=== PATIENT | male | born 1965 | race Caucasian/White ===

== ENCOUNTER 2017-10-15 09:41 | Day surgery (SDC) | payer OTHER ==
[2017-10-13 12:59] VITALS: BMI 30.1
[2017-10-15] MEDS ORDERED: DEXAMETHASONE SOD PHOSPHATE/PF 10 MG/ML SDV ONE (12:02)
[2017-10-15] MEDS ORDERED: MIDAZOLAM HCL 2 MG/2 ML SINGLE DOSE VIAL ONE ×2 (12:02→12:49)
[2017-10-15] MEDS ORDERED: SODIUM CHLORIDE 0.9% P/F 10 ML VIAL IJ ONE (12:03)
[2017-10-15] MEDS ORDERED: BUPIVACAINE HCL/PF 2.5 MG/ML - 30 ML VIAL IJ ONE (12:22)
[2017-10-15] MEDS ORDERED: PROPOFOL 20 ML ONE ×2 (12:49)
[2017-10-15] MEDS ORDERED: ceFAZolin SODIUM 1 GM VIAL ONE (12:50)
[2017-10-15] MEDS ORDERED: KETOROLAC TROMETHAMINE 30 MG/1 ML VIAL ONE (12:50)
[2017-10-15] MEDS ORDERED: DEXAMETHASONE SOD PHOSPHATE 4 MG/1 ML VIAL ONE (12:50)
[2017-10-15] MEDS ORDERED: LIDOCAINE HCL 2% JELLY (5 ML/TUBE) ONE (12:50)
[2017-10-15] MEDS ORDERED: ONDANSETRON 4 MG/2 ML VIAL ONE (12:50)
[2017-10-15] MEDS ORDERED: oxyCODONE HCL 5 MG TABLET PO PRN (14:38)
[2017-10-15] MEDS ORDERED: ONDANSETRON 4 MG/2 ML VIAL IVPUSH PRN (14:38)
[2017-10-15] MEDS ORDERED: LACTATED RINGERS SOLUTION 1,000 ML IV SCH (14:45)
[2017-10-15 16:58] VITALS: TEMP 98
[2017-10-15 17:11] VITALS: BP 132/74; PULSE 65
--- NOTE | 2017-10-17 21:12 | OP ---
DATE OF OPERATION: 10/15/2017 LOCATION: [facility]. SURGEON: Juan Kahn MD SOCIOLOGY ADJUNCT INSTRUCTOR: RUPERT Stephens PREOPERATIVE DIAGNOSES: 1. Right patellar tendon rupture. 2. Right knee medial meniscal tear. 3. Right knee cartilage injury. POSTOPERATIVE DIAGNOSES: 1. Right patellar tendon rupture. 2. Right knee medial meniscal tear. 3. Right knee cartilage injury. PROCEDURE: 1. Right knee patellar tendon repair. 2. Right knee arthroscopy with partial meniscectomy, medial meniscus. 3. Right knee arthroscopy with chondroplasty and abrasion-plasty. 4. Right knee arthroscopy with synovectomy. FINDINGS: 1. Medial meniscus posterior horn extending into body tear. 2. Lateral meniscus, no evidence of tearing. 3. Extensive synovitis, most pronounced anteriorly and medially but also notch and posterior portion. 4. ACL and PCL intact. 5. No evidence of cartilage injury, lateral joint line. 6. Inferior pole patella and femoral trochlea grade 2 to 4 changes. PROCEDURE DESCRIPTION: Informed consent was obtained. The patient was taken to the operating room where the right lower extremity was prepped and draped in a sterile fashion. A tourniquet was placed on the right upper thigh but not inflated. Using standard arthroscopic technique, a lateral incision and portal were made which allowed for introduction of the camera into the suprapatellar bursa. This was then taken to the medial joint line where under direct visualization, a medial incision and portal were made. Excessive synovium noted in the medial, lateral, patellofemoral and notch area was removed by the up-biting shaver and Bovie cautery. This was found to bring inflammatory tissue into the joint surface, a source of joint pain and dysfunction. Probing of the medial and lateral meniscus found tears described in the findings. These were removed with an up-biting shaver and taken back to a stable rim. Grade 2-3 degenerative changes were treated with chondroplasty, removing all flaking surfaces with low setting Bovie used along the periphery. Grade 4 changes were treated with abrasion-plasty. All areas of the knee were once again re-examined. The knee was then drained. A single suture was placed on all portals. Sterile dressing was placed. The patient was transferred to the recovery room. ADDENDUM: After arthroscopy, an incision was made starting from the mid portion of the patella extending approximately 8 cm. Extensive soft tissue was debrided, and the tendon portion that was found to be necrotic was removed. Two number 5 FiberWire sutures were placed into the patellar tendon using a Krackow interlocking stitch. Three drill holes were then placed through to the inferior pole patella through the central portion of the patella to allow for securing of the patellar tendon sutures over a bone bridge. Please note the undersurface of the patella was treated with rongeur and multiple small holes were placed into the inferior pole to create a bleeding surface. The patella was reduced to the patellar tendon by tying it through the 3 bone bridges and secured the soft tissue to the bony bleeding bone. Wound was irrigated with copious amounts of irrigation. Layered closure of 0 Vicryl, 2-0 Vicryl, and ector was performed. Sterile dressing and splint was placed and patient was transferred to the recovery room without complication. JUAN KAHN M.D. [id number]
--- NOTE | 2017-10-20 15:20 | PATH ---
Surgical Pathology Report Patient Name: SAMEERA LAGOS Med. Rec. #: [id number] /Age/Gender: 1965 (Age: 52) / M Account: [id number] Location: [facility] AMBULATORY Taken: 10/15/2017 Received: 10/18/2017 Reported: 10/20/2017 Physicians: Juan Salter M.D. Specimen(s) Received RIGHT KNEE SHAVINGS Clinical History Right knee ruptured patella tendon internal derangement Final Diagnosis KNEE SHAVINGS, RIGHT, ARTHROSCOPY AND PATELLA TENDON REPAIR: FRAGMENTS OF FIBROCARTILAGE, FIBROADIPOSE TISSUE, AND SYNOVIUM. Electronically Signed Demetra Garcia M.D. Gross Description Received in formalin labeled "right knee shavings," is a 3.3 x 3.0 x 0.4 cm aggregate of kirkpatrick-yellow soft tissue fragments admixed with blood clot. A access services representative portion is submitted in one cassette. 10/18/201710/18/2017
== END 2017-10-15 16:45 | disposition home or self-care (01) ==
LOC: FASU 09:41
PROVIDERS: ATTEND Orthopaedic Surgery
PROC: 0LUQ4JZ Supplement Right Knee Tendon with Synthetic Substitute, Percutaneous Endoscopic Approach (ICD-10-PCS; 2017-10-15)
PROC: 0SBC4ZZ Excision of Right Knee Joint, Percutaneous Endoscopic Approach (ICD-10-PCS; principal; 2017-10-15 13:21)
DX: M66.269 Spontaneous rupture of extensor tendons, unspecified lower leg (principal); M23.221 Derangement of posterior horn of medial meniscus due to old tear or injury, right knee
CPT/HCPCS: 88304-TC

== ENCOUNTER 2017-10-16 05:30 | Emergency (ER) | payer OTHER ==
[2017-10-16 05:38] VITALS: TEMP 98.6; BMI 29.4
--- NOTE | 2017-10-16 05:57 | PDOC ---
History of Present Illness - General Chief Complaint: Injury Stated Complaint: RT KNEE PAIN Time Seen by Provider: 10/16/17 05:32 History Source: Patient Exam Limitations: No Limitations - History of Present Illness Initial Comments: 10/16/17 05:47 52-year-old male with no medical history presents to the emergency department complaining of possible right knee injury. Approximately one week ago:2016 patient states he slipped and fell down a flight of stairs causing a right patellar fracture. Patient was seen at [facility] and was discharged to follow with an orthopedic surgeon. 3 days later:10/11/2017, patient saw Dr. Douglass/orthopod in his office. Yesterday,10/15/2017, patient had a right patella rupture repair at [facility]. Prior to discharge, he was informed that a right knee nerve block was performed on him. Patient states a medical taxi brought him home and wheeled him into his house at approximately 1630 hrs. At ~1700 hrs., patient attempted to place his right leg on the ground to void when his legs gave out causing him to fall onto the right side. Patient immediately called Dr. Douglass and explained to him the situation. Patient went back to bed and at approximately 0430 hrs. this morning, patient use his crutches to return to the restroom. Again, he placed his right leg on the ground when his leg gave out causing him to fall onto his right lateral side. Patient states he is unable to feel his right lower leg since the surgery. Patient denies any head injuries, loss of consciousness, headache, dizziness, facial pains, neck pains, back pains, chest pain, shortness of breath, abdominal pains, flank pains, urinary symptoms. Patient denies pain to any other extremities except the right lower leg which he states is still numb from the nerve block. Patient states he called Dr. Douglass and spoke to the covering physician/Dr. Harvey who informed him to be seen in the emergency department. Patient states he cannot recall how much flexion was on his right knee on his initial fall because he quickly strain now his leg but when he fell the second time, he noticed his right knee was approximately 90 flexed. Timing/Duration: other (12 hrs) Severity: mild Modifying Factors: improves with: medication, rest Associated Symptoms: denies: chest pain, cough, shortness of breath Aspirin Received prior to arrival: Yes: no aspirin today Past History - Travel Traveled outside of the country in the last 30 days: No Close contact w/someone who was outside of country & ill: No - Past Medical History Allergies/Adverse Reactions: Allergies Allergy/AdvReac Type Severity Reaction Status Date / Time bee venom protein (honey bee) Allergy Severe CHEST Verified 10/16/17 05:36 TIGHTNESS Penicillins Allergy Unknown UNKNOWN Verified 10/16/17 05:36 Home Medications: Ambulatory Orders Acetaminophen [Tylenol -] 500 mg PO Q6H PRN 10/15/17 Hydrocodone/Acetaminophen [[place] 5-325 Tablet] 1 each PO Q6H PRN #28 tablet MDD 8 10/15/17 Ibuprofen 800 mg PO Q8H PRN #60 tablet 10/15/17 Anemia: No Asthma: No Cancer: No Cardiac Disorders: No CVA: No COPD: No CHF: No Dementia: No Diabetes: No (BOARDERLINE) GI Disorders: Yes (GERD) Disorders: No HTN: No Hypercholesterolemia: No Liver Disease: No Seizures: No Thyroid Disease: No - Surgical History Abdominal Surgery: No Appendectomy: No Cardiac Surgery: No Cholecystectomy: No Lung Surgery: No Neurologic Surgery: No Orthopedic Surgery: No - Suicide/Smoking/Psychosocial Hx Smoking History: Never smoked Have you smoked in the past 12 months: No If you are a former smoker, when did you quit?: 2006 Information on smoking cessation initiated: No Hx Alcohol Use: No Drug/Substance Use Hx: No Substance Use Type: None Hx Substance Use Treatment: No Review of Systems - Review of Systems Able to Perform ROS?: Yes Comments:: 10/16/17 06:43 CONSTITUTIONAL: Absent: fever, chills, diaphoresis, generalized weakness, malaise, loss of appetite HEENT: Absent: rhinorrhea, nasal congestion, throat pain, throat swelling, difficulty swallowing, mouth swelling, ear pain, eye pain, visual Changes CARDIOVASCULAR: Absent: chest pain, loss of consciousness, palpitations, irregular heart rate, peripheral edema RESPIRATORY: Absent: cough, shortness of breath, dyspnea with exertion, orthopnea, wheezing, stridor, hemoptysis GASTROINTESTINAL: Absent: abdominal pain, abdominal distension, nausea, vomiting, diarrhea, constipation, melena, hematochezia GENITOURINARY: Absent: dysuria, frequency, urgency, hesitancy, hematuria, flank pain, genital pain MUSCULOSKELETAL: Right LLE: "I can't feel my leg from the block" Absent: myalgia, arthralgia, joint swelling SKIN: Absent: rash, itching, pallor HEMATOLOGIC/IMMUNOLOGIC: Absent: easy bleeding, easy bruising, lymphadenopathy, frequent infections ENDOCRINE: Absent: unexplained weight gain, unexplained weight loss, heat intolerance, cold intolerance NEUROLOGIC: Absent: headache, focal weakness or paresthesias, dizziness, unsteady gait, seizure, mental status changes, bladder or bowel incontinence Constitutional: No: Chills, Fever, Night Sweats HEENTM: No: Recent change in vision Respiratory: No: Cough, Shortness of Breath, Wheezing Cardiac (ROS): No: Chest Pain, Lightheadedness, Chest Tightness ABD/GI: No: Constipated, Diarrhea, Nausea, Vomiting Musculoskeletal: No: Neck Pain Integumentary: No: Change in Color, Pallor Neurological: Yes: Numbness (reports numbness to RLE). No: Headache, Paresthesia, Tingling, Dizziness Hematologic/Lymphatic: No: Easy Bleeding, Easy Bruising *Physical Exam - Vital Signs Last Vital Signs Temp Pulse Resp BP Pulse Ox 98.6 F 97 H 20 148/95 95 10/16/17 05:36 10/16/17 05:36 10/16/17 05:36 10/16/17 05:36 10/16/17 05:36 - Physical Exam Comments: 10/16/17 06:43 GENERAL: Well developed, well nourished. Awake and alert. No acute distress. HEENT: Normocephalic, atraumatic. PERRLA, EOMI. No conjunctival pallor. Sclera are non- icteric. Moist mucous membranes. Oropharynx is clear. NECK: Supple. Full ROM. No JVD. Carotid pulses 2+ and symmetric, without bruits. No thyromegaly. No lymphadenopathy. CARDIOVASCULAR: Regular rate and rhythm. No murmurs, rubs, or gallops. Distal pulses are 2+ and symmetric. PULMONARY: No evidence of respiratory distress. Lungs clear to auscultation bilaterally. No wheezing, rales or rhonchi. ABDOMINAL: Soft. Non-tender. Non-distended. No rebound or guarding. No organomegaly. Normoactive bowel sounds. MUSCULOSKELETAL Excluding Right LLE: Normal range of motion at all joints. No bony deformities or tenderness. No CVA tenderness. EXTREMITIES: No cyanosis. No clubbing. No edema. No calf tenderness. SKIN: Warm and dry. Normal capillary refill. No rashes. No jaundice. Right Knee ABD dressing on patella/blood stained ~4cm x3cm/ stained but NOT soaked vertical mid patella incision clean/ blood stain +swelling Iodoform medial incision Pt unable to feel 2 point sensation to RLLE Right foot: cap refill <2sec General Appearance: Yes: Nourished, Appropriately Dressed. No: Apparent Distress HEENT: positive: K[place], Normal ENT Inspection, Pharynx Normal. negative: Pharyngeal Erythema, Tonsillar Exudate, Tonsillar Erythema, Rhinorrhea Neck: positive: Trachea midline, Supple. negative: Tender, Decreased range of motion Respiratory/Chest: positive: Lungs Clear, Normal Breath Sounds. negative: Chest Tender, Accessory Muscle Use, Crackles, Rales, Rhonchi, Wheezing Cardiovascular: positive: Regular Rhythm, S1, S2, Tachycardia Vascular Pulses: Dorsalis-Pedis (R): 2+, Doralis-Pedis (L): 2+ Gastrointestinal/Abdominal: positive: Normal Bowel Sounds, Soft. negative: Tender, Distended, Guarding Extremity: positive: Normal Capillary Refill (B/L LE), Other (sutures intact, inc bleeding through dressing on RLE. DP 2+ B/L). negative: Coldness, Cyanosis , Delayed Capillary Refill, Pedal Edema Integumentary: positive: Normal Color, Warm. negative: Cyanotic, Mottled, Pale , Cold, Clammy Neurologic: positive: supervisor nutritional yeast II-XII NML intact, Fully Oriented, Alert, Normal Mood/ Affect, Normal Response Progress Note - Progress Note Progress Note: Right knee: Posterior/medial/lateral fiberglass removed Web roll removed ABD dressing removed Incision looked intact Iodoform dressing medially intact Sterile ABD dressing replaced Web roll/new/replaced Aron wrapped right knee with the posterior/medial and lateral fiberglass splint 0621hrs: Spoke to Dr. Harvey/orthopod covering for Dr. Douglass ([phone]), agrees to have Mr. Toth is right lower leg CT without contrast. The plan is to contact Dr. Harvey for any abnormalities otherwise patient is to be discharged home to follow-up with or so during the week as soon is the nerve block has worn off. 0633hrs: Pt agreed with plan 0704hrs: Signed out to CARLOS Hurley Check CT Right LLE
--- NOTE | 2017-10-16 08:39 | PDOC ---
*Physical Exam - Vital Signs Last Vital Signs Temp Pulse Resp BP Pulse Ox 98.6 F 97 H 20 148/95 95 10/16/17 05:36 10/16/17 05:36 10/16/17 05:36 10/16/17 05:36 10/16/17 05:36 Medical Decision Making - Medical Decision Making 10/16/17 08:09 Patient was seen in sign out from RUPERT Rivas. Patient here secondary to lower extremity numbness after receiving a nerve block yesterday for repair of his tendon repair right patellar rupture repair performed by Dr. Douglass. Patient states after coming home yesterday he fell twice causing him to land on his right side. Patient still complaining of numbness upon arrival. Patient pending CT of the lower extremity. Case already discussed with will be contacted once CT has been resulted along with reexamination 10/16/17 09:02 CT of the lower extremity shows Surgical skin ector with significant soft tissue swelling anterior and soft tissue air. There is also a small joint effusion. Tiny bone fragments along the anterior surface of the patella with a linear low attenuation density and its inferior/anterior aspect that may represent postop changes in view of the clinical history. Cannot exclude a nondisplaced fracture. call placed to Dr. Harvey, orthopedist to discuss case. Reexamination. Patient has numbness to the right fifth toe, severe paresthesia to the fourth toe, moderate to the third toe , minimal paresthesia to the right second toe and no paresthesia or decreased sensation to the right first toe. 10/16/17 10:04 Case is discussed with Dr. Harvey orthopedist from [facility] and states CT findings consistent with postoperative changes and does not display a fracture. he does recommend calling anesthesiology to discuss the nerve block and possibly consult on patient in the ER. Patient otherwise may follow up with him in the office on Wednesday . 10/16/17 10:21 Case discussed with anesthesiologist Dr. Villanueva and states will consult on patient down here in the ER. 10/16/17 10:58 Patient was able to ambulate using crutches. Gait steady. Patient also seen by Dr. Villanueva, anesthesiologist who states patient may go home and follow up with orthopedist as planned. Patient requesting a dose of Naprosyn prior to discharge. *DC/Admit/Observation/Transfer Diagnosis at time of Disposition: Post-operative numbness Right knee pain Qualifiers: Chronicity: acute Qualified Code(s): M25.561 - Pain in right knee - Discharge Dispostion Disposition: HOME Condition at time of disposition: Good - Referrals - Patient Instructions Printed Discharge Instructions: How to Use Crutches Additional Instructions: At this time he had been seen by the anesthesiologist who explained postoperative process and healing. As discussed with your orthopedist please follow-up with Dr. Douglass on Wednesday and continue take medication as needed for discomfort. - Post Discharge Activity
--- NOTE | 2017-10-16 10:32 | PDOC ---
*Physical Exam - Vital Signs Last Vital Signs Temp Pulse Resp BP Pulse Ox 98.6 F 88 16 147/97 97 10/16/17 05:36 10/16/17 09:29 10/16/17 09:29 10/16/17 09:29 10/16/17 09:29 Medical Decision Making - Medical Decision Making 10/16/17 10:32 Patient with fall likely secondary to improper crutch use. Patient states that he had difficulty remaining steadies secondary to nerve block. He presented to the emergency department his orthopedist was consulted a CAT scan was ordered which demonstrated no significant pathology Findings discussed with orthopedist patient safe for outpatient follow-up on Wednesday Anesthesia will evaluate the patient in the emergency department to ensure that his nerve block is wearing off appropriately In the emergency department patient was able to ambulate comfortably with steady gait using crutches. If cleared by anesthesia patient can be discharged home has follow-up on Wednesday. Findings, the need for follow-up and strict return instructions discussed with patient. *DC/Admit/Observation/Transfer Diagnosis at time of Disposition: Post-operative numbness Right knee pain Qualifiers: Chronicity: acute Qualified Code(s): M25.561 - Pain in right knee - Discharge Dispostion Disposition: HOME Condition at time of disposition: Good - Referrals - Patient Instructions Printed Discharge Instructions: How to Use Crutches Additional Instructions: At this time he had been seen by the anesthesiologist who explained postoperative process and healing. As discussed with your orthopedist please follow-up with Dr. Douglass on Wednesday and continue take medication as needed for discomfort. - Post Discharge Activity
[2017-10-16] MEDS ORDERED: NAPROXEN 250 MG TABLET (FP) PO ONE (10:59)
[2017-10-16] MEDS ORDERED: NAPROXEN 500 MG TABLET (FP) ONE (11:03)
[2017-10-16 11:18] VITALS: BP 138/89; PULSE 70
== END 2017-10-16 11:18 | disposition home or self-care (01) ==
LOC: JER 05:30
DX: F14.10 Cocaine abuse, uncomplicated (principal); E78.00 Pure hypercholesterolemia, unspecified; Z21 Asymptomatic human immunodeficiency virus [HIV] infection status; Z89.021 Acquired absence of right finger(s)
CPT/HCPCS: 73700-TC-RT; 99282-25

== ENCOUNTER 2017-12-17 05:53 | Day surgery (SDC) | payer OTHER ==
[2017-12-16 11:37] VITALS: BMI 30.4
[2017-12-17] MEDS ORDERED: SUCCINYLCHOLINE CHLORIDE 200 MG/10 ML VIAL ONE (07:20)
[2017-12-17] MEDS ORDERED: MIDAZOLAM HCL 2 MG/2 ML SINGLE DOSE VIAL ONE (07:20)
[2017-12-17] MEDS ORDERED: ceFAZolin SODIUM 1 GM VIAL ONE ×2 (07:20→07:58)
[2017-12-17] MEDS ORDERED: PROPOFOL 20 ML ONE ×2 (07:20→07:21)
[2017-12-17] MEDS ORDERED: LIDOCAINE HCL 2% JELLY (5 ML/TUBE) ONE (07:21)
[2017-12-17] MEDS ORDERED: DEXAMETHASONE SOD PHOSPHATE 4 MG/1 ML VIAL ONE (07:21)
[2017-12-17] MEDS ORDERED: ONDANSETRON 4 MG/2 ML VIAL ONE (07:21)
[2017-12-17] MEDS ORDERED: LIDOCAINE HCL/PF 2% SDV 5ML VIAL ONE (07:21)
[2017-12-17] MEDS ORDERED: ROCURONIUM BROMIDE 50 MG/5 ML VIAL ONE (07:24)
[2017-12-17] MEDS ORDERED: BUPIVACAINE HCL/PF 2.5 MG/ML - 30 ML VIAL IJ ONE (07:30)
[2017-12-17] MEDS ORDERED: fentaNYL CITRATE 250 MCG/5 ML VIAL ONE (07:50)
[2017-12-17] MEDS ORDERED: HYDROmorphone HCL/PF 1 MG/ML VIAL (FOR PYXIS CHARGING ONLY) ONE ×2 (08:35→09:29)
[2017-12-17] MEDS ORDERED: DESFLURANE GAS 240 ML BOTTLE IH ONE (08:49)
[2017-12-17] MEDS ORDERED: GLYCOPYRROLATE 0.2 MG/1 ML VIAL ONE (08:55)
[2017-12-17] MEDS ORDERED: NEOSTIGMINE METHYLSULFATE 0.5 MG/ML - 10 ML MDV ONE (08:55)
[2017-12-17] MEDS ORDERED: BUPIVACAINE HCL/PF 0.25% (2.5MG/ML) 10 ML VIAL IJ ONE (09:17)
[2017-12-17] MEDS ORDERED: ONDANSETRON 4 MG/2 ML VIAL IVPUSH PRN (09:55)
[2017-12-17] MEDS ORDERED: LACTATED RINGERS SOLUTION 1,000 ML IV SCH (10:00)
[2017-12-17] MEDS: oxyCODONE HCL 5 MG TABLET PO PRN ×2 (10:20→10:55)
[2017-12-17] MEDS ORDERED: oxyCODONE HCL 5 MG TABLET ONE (10:53)
[2017-12-17 11:58] VITALS: TEMP 97.9
[2017-12-17 13:47] VITALS: BP 152/90; PULSE 90
--- NOTE | 2017-12-20 00:26 | OP ---
DATE OF OPERATION: 12/17/2017 SURGEON: Juan Kahn MD RECRUITER MANAGER: RUPERT Stephens PREOPERATIVE DIAGNOSIS: Right knee patellar tendon rupture. POSTOPERATIVE DIAGNOSIS: Right knee patellar tendon rupture. PROCEDURE: Right knee patellar tendon repair secondary to using graft. FINDINGS: Avulsion of previous repair tendon at the tendon insertion site into the inferior pole of the patella. PROCEDURE: Informed consent was obtained. The patient was brought to the operating room where the right lower extremity was prepped and draped in the sterile fashion. Tourniquet was placed on the upper leg and inflated to 300 mmHg. An incision was made on the area of the patient's previous incision anterior to the knee. Scar tissue was removed and the area of retear was noted along the patellar tendon insertion to the inferior pole of the patella. Excessive scar tissue was debrided and the inferior pole of the patella was debrided, creating a bleeding surface using a rongeur and multiple holes were placed with a beef needle. Old suture was removed and two number 5 Ethibonds were placed in a locking Krackow stitch, providing 4 strands of suture and 2 separate Krackow interlocking stitches. These were then secured using beef needles, drilling holes from the inferior pole of the patella to the center portion of the patella, bringing the sutures through these holes and securing them over bone tunnels. With the anterior portion of the patella exposed, a guidewire was then placed back through the patella and mattress sutures were used, using the same bone tunnels, securing the tibialis anterior allograft to the superior portion of the patella. This was then inner sewn into the patellar tendon repair in a cross/X pattern using number 2 FiberWire. Edges were then oversewn with number 2 FiberWire. Wound was irrigated with copious amounts of irrigation and closed with 0 Vicryl, 2-0 Vicryl, and ector. Sterile dressing and a silver cast were placed. The patient was transferred to the recovery room without complication. JUAN KAHN M.D. [id number]
--- NOTE | 2017-12-21 12:50 | PATH ---
Surgical Pathology Report Patient Name: SAMEERA LAGOS Med. Rec. #: [id number] /Age/Gender: 1965 (Age: 52) / M Account: [id number] Location: [facility] AMBULATORY Taken: 12/17/2017 Received: 12/17/2017 Reported: 12/21/2017 Physicians: Juan Salter M.D. Specimen(s) Received RIGHT PATELLA TENDON SCAR TISSUE Clinical History Right patellar tendon tear Final Diagnosis PATELLAR TENDON SCAR TISSUE, RIGHT, REPAIR: FIBROCOLLAGENOUS TISSUE SHOWING ACUTE AND CHRONIC INFLAMMATION, GRANULATION TISSUE FORMATION AND FOREIGN BODY GIANT CELL REACTION WITH ASSOCIATED SUTURE MATERIAL. Electronically Signed Mily Pablo M.D. Gross Description Received in formalin labeled "right patellar tendon scar tissue," is a 4.5 x 4.5 x 0.8 cm aggregate of kirkpatrick, irregular portions of soft tissue. Some of the portions displaying embedded blue suture material. There is additional blue suture material received within the same container. Wallpaper Scraper sections are submitted in one cassette. 12/17/201712/17/2017
== END 2017-12-17 13:40 | disposition home or self-care (01) ==
LOC: FASU 05:53
PROVIDERS: ATTEND Orthopaedic Surgery
PROC: 0LUQ07Z Supplement Right Knee Tendon with Autologous Tissue Substitute, Open Approach (ICD-10-PCS; principal; 2017-12-17 08:15)
DX: M66.261 Spontaneous rupture of extensor tendons, right lower leg (principal)
CPT/HCPCS: 88304-TC; 94760; 97116-GP

== ENCOUNTER 2023-03-12 23:58 | Inpatient (IN) | payer BC, OTHER ==
[2023-03-13 00:13] VITALS: BMI 30.1
[2023-03-13] MEDS ORDERED: VANCOMYCIN 1,000 MG in DEXTROSE 5%-WATER - 250 ML IVPB ONE (00:22)
[2023-03-13] MEDS ORDERED: MEROPENEM 1 GM in DEXTROSE 5%-WATER 100 ML IVPB ONE (00:22)
[2023-03-13] MEDS ORDERED: VANCOMYCIN/WATER FOR INJ (PEG) 1,000 MG/200 ML BAG IVPB ONE (00:29)
[2023-03-13] MEDS ORDERED: MEROPENEM 1 GM VIAL (RESTRICTED TO ID) IVPB ONE (00:29)
[2023-03-13 01:51] LABS: BASO % 0.4 % (0-2.0); EOS % 1.5 % (0-4.5); HEMATOCRIT 40.8 % (35.4-49); LYMPH % 17.7 % (8-40); MCH 30.5 pg (25.7-33.7); MCHC 34.3 g/dl (32.0-35.9); MEAN CELL VOLUME 88.9 fl (80-96); MEAN PLT VOLUME 7.6 fl (7.5-11.1); MONO % 8.5 % (3.8-10.2); NEUT % 71.9 % (42.8-82.8); PLATELET COUNT 224 10^3/uL (134-434); RBC 4.59 M/mm3 (4.00-5.60); RDW 13.4 % (11.9-15.9); WHITE BLOOD COUNT 15.1 K/mm3 (4.0-10.0)
[2023-03-13 02:17] LABS: POTASSIUM 3.7 mmol/L (3.5-5.1)
[2023-03-13 02:20] LABS: CALCIUM 9.1 mg/dL (8.5-10.1)
[2023-03-13 02:21] LABS: ALBUMIN 3.9 g/dl (3.4-5.0); BLOOD UREA NITROGEN 19.7 mg/dL (7-18)
[2023-03-13 02:25] LABS: BILIRUBIN,TOTAL 0.6 mg/dL (0.2-1)
[2023-03-13 02:26] LABS: TOT PROT 8.2 g/dl (6.4-8.2)
[2023-03-13] MEDS: INSULIN SLIDING SCALE (NOVOLOG) 1 VIAL SQ SCH ×4 (06:14→21:40)
[2023-03-13] MEDS: ACETAMINOPHEN 1000 MG/100 ML BAG IVPB PRN ×2 (06:55→21:40)
[2023-03-13 07:09] LABS: ERYTHROCYTE SEDIMENTATION RATE 70 mm/hr (0-20)
[2023-03-13 09:15] LABS: BASO % 0.5 % (0-2.0); EOS % 1.5 % (0-4.5); HEMATOCRIT 37.7 % (35.4-49); HEMOGLOBIN 13.3 GM/dL (11.7-16.9); LYMPH % 17.7 % (8-40); MCH 31.3 pg (25.7-33.7); MCHC 35.3 g/dl (32.0-35.9); MEAN CELL VOLUME 88.7 fl (80-96); MEAN PLT VOLUME 7.7 fl (7.5-11.1); MONO % 7.9 % (3.8-10.2); NEUT % 72.4 % (42.8-82.8); PLATELET COUNT 188 10^3/uL (134-434); RBC 4.25 M/mm3 (4.00-5.60); WHITE BLOOD COUNT 10.5 K/mm3 (4.0-10.0)
[2023-03-13 09:19] LABS: INR 1.2 (0.83-1.09); PROTHROMBIN TIME (PATIENT) 13.9 SEC (9.7-13.0)
[2023-03-13 09:22] LABS: ACTIVATED PTT 27.4 SECONDS (25.2-36.5)
[2023-03-13] MEDS: MEROPENEM 1 GM in DEXTROSE 5%-WATER 100 ML IVPB SCH ×2 (09:46→18:00)
[2023-03-13 09:47] LABS: POTASSIUM 4.1 mmol/L (3.5-5.1)
[2023-03-13 09:57] LABS: BLOOD UREA NITROGEN 20.2 mg/dL (7-18); CALCIUM 8.7 mg/dL (8.5-10.1)
[2023-03-13 10:00] LABS: CREATININE 0.9 mg/dL (0.55-1.3); PHOSPHOROUS 3.1 mg/dL (2.5-4.9)
[2023-03-13] MEDS: ENOXAPARIN NA (PORCINE) 40 MG/0.4 ML DISP.SYRIN SQ SCH (10:00)
[2023-03-13] MEDS ORDERED: IBUPROFEN 200 MG TABLET PO PRN (12:48)
[2023-03-13] MEDS ORDERED: VANCOMYCIN PREMIX 1.5 GM 1,500 MG/300 ML BAG IVPB SCH ×2 (13:00→18:30)
[2023-03-13] MEDS: BACITRACIN ZINC 15 GM TUBE TOPICAL OINTMENT TP SCH ×2 (13:29→21:38)
[2023-03-13] MEDS ORDERED: MEROPENEM 1 GM in DEXTROSE 5%-WATER 100 ML IVPB SCH (18:00)
[2023-03-13] MEDS: IBUPROFEN 200 MG TABLET PO PRN (18:34)
[2023-03-13] MEDS: CEFTRIAXONE 1 GM in DEXTROSE 5%-WATER - 50 ML IVPB SCH (18:44)
[2023-03-13] MEDS ORDERED: INSULIN (NOVOLOG) ASPART 100 UNITS/ML 10ML VIAL ONE (21:17)
[2023-03-13] MEDS: DOCUSATE SODIUM 100 MG CAPSULE (FP) PO SCH (21:40)
[2023-03-14] MEDS: VANCOMYCIN PREMIX 1.5 GM 1,500 MG/300 ML BAG IVPB SCH ×2 (01:08→12:49)
[2023-03-14] MEDS: INSULIN SLIDING SCALE (NOVOLOG) 1 VIAL SQ SCH ×4 (06:25→21:35)
[2023-03-14] MEDS ORDERED: INSULIN (NOVOLOG) ASPART 100 UNITS/ML 10ML VIAL ONE ×2 (06:46→21:18)
[2023-03-14] MEDS: IBUPROFEN 200 MG TABLET PO PRN (07:37)
[2023-03-14] MEDS: CEFTRIAXONE 1 GM in DEXTROSE 5%-WATER - 50 ML IVPB SCH (09:13)
[2023-03-14] MEDS: DOCUSATE SODIUM 100 MG CAPSULE (FP) PO SCH ×2 (09:13→21:36)
[2023-03-14] MEDS: ACETAMINOPHEN 325 MG TABLET (FP) PO PRN (09:16)
[2023-03-14] MEDS: BACITRACIN ZINC 15 GM TUBE TOPICAL OINTMENT TP SCH ×2 (09:21→21:35)
[2023-03-14] MEDS: ENOXAPARIN NA (PORCINE) 40 MG/0.4 ML DISP.SYRIN SQ SCH (09:22)
[2023-03-14 09:51] LABS: BASO % 0.6 % (0-2.0); EOS % 2.8 % (0-4.5); HEMATOCRIT 40.7 % (35.4-49); HEMOGLOBIN 14.1 GM/dL (11.7-16.9); LYMPH % 17.1 % (8-40); MCH 30.8 pg (25.7-33.7); MCHC 34.7 g/dl (32.0-35.9); MEAN CELL VOLUME 88.8 fl (80-96); MEAN PLT VOLUME 7.2 fl (7.5-11.1); MONO % 9.6 % (3.8-10.2); NEUT % 69.9 % (42.8-82.8); PLATELET COUNT 208 10^3/uL (134-434); RBC 4.58 M/mm3 (4.00-5.60); RDW 13.4 % (11.9-15.9); WHITE BLOOD COUNT 8.1 K/mm3 (4.0-10.0)
[2023-03-14 09:56] LABS: POTASSIUM 3.8 mmol/L (3.5-5.1)
[2023-03-14 09:58] LABS: ALBUMIN 3.2 g/dl (3.4-5.0); BLOOD UREA NITROGEN 14.7 mg/dL (7-18); CALCIUM 8.2 mg/dL (8.5-10.1)
[2023-03-14] MEDS ORDERED: MEROPENEM 1 GM in DEXTROSE 5%-WATER 100 ML IVPB SCH (10:00)
[2023-03-14 10:01] LABS: CREATININE 0.6 mg/dL (0.55-1.3)
[2023-03-14 10:03] LABS: BILIRUBIN,TOTAL 0.8 mg/dL (0.2-1)
[2023-03-14] MEDS ORDERED: VANCOMYCIN PREMIX 1.5 GM 1,500 MG/300 ML BAG IVPB SCH (13:00)
[2023-03-14] MEDS: IBUPROFEN 600 MG TABLET (FP) PO PRN (19:58)
[2023-03-15] MEDS: VANCOMYCIN PREMIX 1.5 GM 1,500 MG/300 ML BAG IVPB SCH ×2 (00:41→12:53)
[2023-03-15] MEDS: IBUPROFEN 600 MG TABLET (FP) PO PRN ×3 (01:53→20:37)
[2023-03-15] MEDS: ACETAMINOPHEN 325 MG TABLET (FP) PO PRN ×2 (05:50→15:53)
[2023-03-15] MEDS: INSULIN SLIDING SCALE (NOVOLOG) 1 VIAL SQ SCH ×4 (06:17→21:50)
[2023-03-15] MEDS: DOCUSATE SODIUM 100 MG CAPSULE (FP) PO SCH ×2 (09:17→21:12)
[2023-03-15] MEDS: ENOXAPARIN NA (PORCINE) 40 MG/0.4 ML DISP.SYRIN SQ SCH (09:17)
[2023-03-15] MEDS: CEFTRIAXONE 1 GM in DEXTROSE 5%-WATER - 50 ML IVPB SCH (09:24)
[2023-03-15] MEDS: BACITRACIN ZINC 15 GM TUBE TOPICAL OINTMENT TP SCH ×2 (09:28→21:12)
[2023-03-15 10:05] LABS: BASO % 0.4 % (0-2.0); EOS % 2.9 % (0-4.5); HEMATOCRIT 42.7 % (35.4-49); LYMPH % 21.8 % (8-40); MCH 31.2 pg (25.7-33.7); MCHC 35.1 g/dl (32.0-35.9); MEAN PLT VOLUME 7.4 fl (7.5-11.1); MONO % 8.6 % (3.8-10.2); NEUT % 66.3 % (42.8-82.8); PLATELET COUNT 248 10^3/uL (134-434); RDW 13.1 % (11.9-15.9); WHITE BLOOD COUNT 9.9 K/mm3 (4.0-10.0)
[2023-03-15 10:54] LABS: POTASSIUM 4.2 mmol/L (3.5-5.1)
[2023-03-15 10:56] LABS: ALBUMIN 3.7 g/dl (3.4-5.0); CALCIUM 8.7 mg/dL (8.5-10.1); MAGNESIUM 2.2 mg/dL (1.8-2.4)
[2023-03-15 10:58] LABS: BLOOD UREA NITROGEN 13.7 mg/dL (7-18)
[2023-03-15 11:01] LABS: CREATININE 0.7 mg/dL (0.55-1.3)
[2023-03-15 11:02] LABS: BILIRUBIN,TOTAL 0.6 mg/dL (0.2-1); TOT PROT 7.9 g/dl (6.4-8.2)
[2023-03-16] MEDS: VANCOMYCIN PREMIX 1.5 GM 1,500 MG/300 ML BAG IVPB SCH ×2 (01:10→12:59)
[2023-03-16] MEDS: ACETAMINOPHEN 325 MG TABLET (FP) PO PRN ×4 (03:06→21:55)
[2023-03-16] MEDS ORDERED: INSULIN (NOVOLOG) ASPART 100 UNITS/ML 10ML VIAL ONE (06:07)
[2023-03-16] MEDS: INSULIN SLIDING SCALE (NOVOLOG) 1 VIAL SQ SCH ×4 (06:13→21:57)
[2023-03-16 09:10] LABS: BASO % 0.4 % (0-2.0); EOS % 2.8 % (0-4.5); HEMATOCRIT 41.5 % (35.4-49); HEMOGLOBIN 14.6 GM/dL (11.7-16.9); MCHC 35.1 g/dl (32.0-35.9); MEAN CELL VOLUME 88.3 fl (80-96); MEAN PLT VOLUME 6.9 fl (7.5-11.1); MONO % 8.2 % (3.8-10.2); NEUT % 66.6 % (42.8-82.8); PLATELET COUNT 239 10^3/uL (134-434); RDW 13.4 % (11.9-15.9)
[2023-03-16 09:28] LABS: POTASSIUM 4.3 mmol/L (3.5-5.1)
[2023-03-16] MEDS: ENOXAPARIN NA (PORCINE) 40 MG/0.4 ML DISP.SYRIN SQ SCH (09:29)
[2023-03-16] MEDS: DOCUSATE SODIUM 100 MG CAPSULE (FP) PO SCH ×2 (09:29→21:51)
[2023-03-16] MEDS: BACITRACIN ZINC 15 GM TUBE TOPICAL OINTMENT TP SCH ×2 (09:29→21:51)
[2023-03-16 09:34] LABS: ALBUMIN 3.5 g/dl (3.4-5.0); BLOOD UREA NITROGEN 11.5 mg/dL (7-18); CALCIUM 8.7 mg/dL (8.5-10.1); MAGNESIUM 2.1 mg/dL (1.8-2.4)
[2023-03-16 09:38] LABS: BILIRUBIN,TOTAL 0.6 mg/dL (0.2-1); CREATININE 0.6 mg/dL (0.55-1.3); TOT PROT 7.5 g/dl (6.4-8.2)
[2023-03-16] MEDS: CEFTRIAXONE 1 GM in DEXTROSE 5%-WATER - 50 ML IVPB SCH (09:54)
[2023-03-16 18:25] LABS: INR 1.16 (0.83-1.09); PROTHROMBIN TIME (PATIENT) 13.4 SEC (9.7-13.0)
[2023-03-17] MEDS: VANCOMYCIN PREMIX 1.5 GM 1,500 MG/300 ML BAG IVPB SCH ×2 (02:01→12:13)
[2023-03-17] MEDS: ACETAMINOPHEN 325 MG TABLET (FP) PO PRN (04:23)
[2023-03-17] MEDS: INSULIN SLIDING SCALE (NOVOLOG) 1 VIAL SQ SCH ×4 (06:36→21:19)
[2023-03-17] MEDS ORDERED: BUPIVACAINE HCL/PF 0.5% (5MG/ML) 10 ML VIAL ONE (07:09)
[2023-03-17] MEDS ORDERED: GENTAMICIN SO4 80 MG/2 ML VIAL ONE (07:09)
[2023-03-17] MEDS ORDERED: LIDOCAINE HCL 1%, 10 MG/ML (10ML VIAL) MDV ONE (07:09)
[2023-03-17] MEDS ORDERED: SUCCINYLCHOLINE CHLORIDE 200 MG/10 ML SYRINGE ONE (07:20)
[2023-03-17] MEDS ORDERED: MIDAZOLAM HCL 2 MG/2 ML SINGLE DOSE VIAL ONE (07:20)
[2023-03-17] MEDS ORDERED: ROCURONIUM BROMIDE 50 MG/5 ML SYRINGE ONE (07:20)
[2023-03-17] MEDS ORDERED: PROPOFOL 20 ML ONE ×2 (07:20→07:32)
[2023-03-17] MEDS ORDERED: LIDOCAINE HCL 1%, 10 MG/ML (20ML VIAL) INF ONE (07:49)
[2023-03-17] MEDS ORDERED: BUPIVACAINE HCL/PF 0.5% (5MG/ML) 10 ML VIAL IJ ONE (07:49)
[2023-03-17] MEDS ORDERED: oxyCODONE HCL 5 MG TABLET PO PRN (08:17)
[2023-03-17] MEDS ORDERED: ONDANSETRON 4 MG/2 ML VIAL IVPUSH PRN ×2 (08:17→08:35)
[2023-03-17] MEDS ORDERED: LACTATED RINGERS SOLUTION 1,000 ML IV SCH ×2 (08:30→08:35)
[2023-03-17] MEDS ORDERED: VANCOMYCIN PREMIX 1.5 GM 1,500 MG/300 ML BAG IVPB SCH (09:30)
[2023-03-17] MEDS: DOCUSATE SODIUM 100 MG CAPSULE (FP) PO SCH ×2 (10:00→21:19)
[2023-03-17] MEDS: CEFTRIAXONE 1 GM in DEXTROSE 5%-WATER - 50 ML IVPB SCH (10:00)
[2023-03-17 10:21] LABS: BASO % 0.5 % (0-2.0); EOS % 2.7 % (0-4.5); HEMATOCRIT 38.9 % (35.4-49); HEMOGLOBIN 13.9 GM/dL (11.7-16.9); LYMPH % 21.9 % (8-40); MCH 31.6 pg (25.7-33.7); MCHC 35.8 g/dl (32.0-35.9); MEAN CELL VOLUME 88.3 fl (80-96); MEAN PLT VOLUME 7.4 fl (7.5-11.1); NEUT % 65.9 % (42.8-82.8); PLATELET COUNT 223 10^3/uL (134-434); RBC 4.41 M/mm3 (4.00-5.60); RDW 12.7 % (11.9-15.9); WHITE BLOOD COUNT 8.5 K/mm3 (4.0-10.0)
[2023-03-17] MEDS ORDERED: INSULIN (NOVOLOG) ASPART 100 UNITS/ML 10ML VIAL ONE (11:49)
[2023-03-17] MEDS: oxyCODONE HCL 5 MG TABLET PO PRN ×2 (11:58→18:13)
[2023-03-17] MEDS: IBUPROFEN 600 MG TABLET (FP) PO PRN ×2 (14:27→21:21)
[2023-03-17 21:23] VITALS: RESP 18
[2023-03-18] MEDS: VANCOMYCIN PREMIX 1.5 GM 1,500 MG/300 ML BAG IVPB SCH ×2 (02:00→13:39)
[2023-03-18] MEDS: IBUPROFEN 600 MG TABLET (FP) PO PRN (04:37)
[2023-03-18] MEDS: INSULIN SLIDING SCALE (NOVOLOG) 1 VIAL SQ SCH ×4 (06:13→21:40)
[2023-03-18] MEDS: ACETAMINOPHEN 325 MG TABLET (FP) PO PRN ×3 (09:55→21:46)
[2023-03-18] MEDS: DOCUSATE SODIUM 100 MG CAPSULE (FP) PO SCH ×2 (09:56→21:40)
[2023-03-18] MEDS: CEFTRIAXONE 1 GM in DEXTROSE 5%-WATER - 50 ML IVPB SCH (09:56)
[2023-03-18] MEDS: oxyCODONE HCL 5 MG TABLET PO PRN (18:40)
[2023-03-19] MEDS: VANCOMYCIN PREMIX 1.5 GM 1,500 MG/300 ML BAG IVPB SCH (00:45)
[2023-03-19] MEDS: oxyCODONE HCL 5 MG TABLET PO PRN (01:56)
[2023-03-19] MEDS: IBUPROFEN 600 MG TABLET (FP) PO PRN (06:14)
[2023-03-19] MEDS: INSULIN SLIDING SCALE (NOVOLOG) 1 VIAL SQ SCH (06:17)
[2023-03-19] MEDS: CEFTRIAXONE 1 GM in DEXTROSE 5%-WATER - 50 ML IVPB SCH (09:11)
[2023-03-19] MEDS: DOCUSATE SODIUM 100 MG CAPSULE (FP) PO SCH (09:28)
[2023-03-19 09:31] VITALS: BP 136/90; PULSE 96; TEMP 97.8
== END 2023-03-19 11:30 | disposition home health service (06) | DRG 364 ==
LOC: JER 23:58 → JERBED 03-13 02:40 → J6S 03-13 04:41
PROVIDERS: ADMIT Internal Medicine; ATTEND Internal Medicine
PROC: 0JDR0ZZ Extraction of Left Foot Subcutaneous Tissue and Fascia, Open Approach (ICD-10-PCS; principal; 2023-03-17 07:30)
DX: L03.116 Cellulitis of left lower limb (principal); M79.672 Pain in left foot; E11.9 Type 2 diabetes mellitus without complications; K21.9 Gastro-esophageal reflux disease without esophagitis; Z22.321 Carrier or suspected carrier of Methicillin susceptible Staphylococcus aureus
CPT/HCPCS: 0241U-QW; 36415; 73630-TC-LT; 73700-TC-RT; 80048; 80053; 82962; 83036; 83735; 84100; 85025; 85610; 85651; 85730; 86140; 87070; 87186; 87205; 93005; 93010; 94760; 99285-25; G0480

== ENCOUNTER 2023-03-24 16:57 | Emergency (ER) | payer OTHER ==
[2023-03-24 17:30] VITALS: RESP 18; TEMP 97.8; BMI 30.1
[2023-03-24 19:24] LABS: BASO % 0.6 % (0-2.0); EOS % 2.4 % (0-4.5); HEMATOCRIT 41.3 % (35.4-49); HEMOGLOBIN 14.3 GM/dL (11.7-16.9); LYMPH % 21.1 % (8-40); MCH 30.5 pg (25.7-33.7); MCHC 34.7 g/dl (32.0-35.9); MEAN CELL VOLUME 88.1 fl (80-96); MEAN PLT VOLUME 7.3 fl (7.5-11.1); NEUT % 68.9 % (42.8-82.8); PLATELET COUNT 256 10^3/uL (134-434); RBC 4.69 M/mm3 (4.00-5.60); RDW 13.2 % (11.9-15.9); WHITE BLOOD COUNT 10.8 K/mm3 (4.0-10.0)
[2023-03-24 19:25] LABS: URINE APPEARANCE CLEAR; URINE BILIRUBIN NEGATIVE (NEGATIVE); URINE COLOR YELLOW; URINE GLUCOSE (UA) 3+ (NEGATIVE); URINE KETONE TRACE (NEGATIVE); URINE LEUK ESTERASE NEGATIVE (NEGATIVE); URINE NITRITE NEGATIVE (NEGATIVE); URINE PROTEIN NEGATIVE (NEGATIVE); URINE UROBILINOGEN 0.2 mg/dL (0.2-1.0)
[2023-03-24 19:29] LABS: POTASSIUM 3.9 mmol/L (3.5-5.1)
[2023-03-24 19:33] LABS: CALCIUM 9.4 mg/dL (8.5-10.1)
[2023-03-24] MEDS ORDERED: LACTATED RINGERS SOLUTION 1000 ML INFUS.BAG IV ONE (19:33)
[2023-03-24 19:34] LABS: ALBUMIN 3.7 g/dl (3.4-5.0); BLOOD UREA NITROGEN 18.8 mg/dL (7-18)
[2023-03-24 19:37] LABS: CREATININE 0.9 mg/dL (0.55-1.3)
[2023-03-24 19:38] LABS: TOT PROT 8.1 g/dl (6.4-8.2)
[2023-03-24 19:39] LABS: BILIRUBIN,TOTAL 0.4 mg/dL (0.2-1)
[2023-03-24 19:40] LABS: N-TERMINAL BNP 50.8 pg/ml (5-125)
[2023-03-24 20:58] VITALS: BP 151/83; PULSE 74
== END 2023-03-24 21:32 | disposition home or self-care (01) ==
LOC: JER 16:57
DX: R07.89 Other chest pain (principal); R00.2 Palpitations
CPT/HCPCS: 36415; 71045-TC-FY; 80053; 81003; 83690; 83735; 83880; 84439; 84443; 84484; 85025; 93005; 93010; 99285-25

== ENCOUNTER 2024-05-27 07:42 | Emergency (ER) | payer OTHER ==
[2024-05-27 07:52] VITALS: BP 138/94; PULSE 81; RESP 18; TEMP 98.8; BMI 30.1
== END 2024-05-27 10:04 | disposition home or self-care (01) ==
LOC: JER 07:42
DX: L02.612 Cutaneous abscess of left foot (principal); L08.9 Local infection of the skin and subcutaneous tissue, unspecified
CPT/HCPCS: 99283-25

== ENCOUNTER 2024-09-14 09:55 | Emergency (ER) | payer OTHER ==
[2024-09-14 10:56] VITALS: RESP 18; BMI 30.1
[2024-09-14] MEDS: FAMOTIDINE 20 MG TABLET PO ONE (11:31)
[2024-09-14 11:40] LABS: BASO % 0.9 % (0-2.0); EOS % 0.2 % (0-4.5); HEMATOCRIT 41.4 % (35.4-49); HEMOGLOBIN 14.2 GM/dL (11.7-16.9); LYMPH % 12.7 % (8-40); MCH 30.9 pg (25.7-33.7); MCHC 34.3 g/dl (32.0-35.9); MEAN CELL VOLUME 90.1 fl (80-96); MEAN PLT VOLUME 7.6 fl (7.5-11.1); MONO % 5.3 % (3.8-10.2); NEUT % 80.9 % (42.8-82.8); PLATELET COUNT 217 10^3/uL (134-434); RDW 13.4 % (11.9-15.9); WHITE BLOOD COUNT 13.1 K/mm3 (4.0-10.0)
[2024-09-14 11:54] LABS: POTASSIUM 3.9 mmol/L (3.5-5.1)
[2024-09-14 11:56] LABS: ALBUMIN 3.8 g/dl (3.4-5.0); BLOOD UREA NITROGEN 18.1 mg/dL (7-18); CALCIUM 8.9 mg/dL (8.5-10.1); MAGNESIUM 2.1 mg/dL (1.8-2.4)
[2024-09-14 11:59] LABS: CREATININE 0.9 mg/dL (0.55-1.3)
[2024-09-14 12:01] LABS: BILIRUBIN,TOTAL 0.4 mg/dL (0.2-1); TOT PROT 7.4 g/dl (6.4-8.2)
[2024-09-14 14:01] VITALS: BP 142/83; PULSE 74; TEMP 97.4
== END 2024-09-14 15:54 | disposition home or self-care (01) ==
LOC: JER 09:55
DX: R00.2 Palpitations (principal); R07.89 Other chest pain; R10.13 Epigastric pain
CPT/HCPCS: 36415; 71046-TC-FY; 80053; 82962; 83735; 84484; 85025; 93005; 93010; 99285-25